=== PATIENT | female | born 1975 | race Caucasian/White ===

== ENCOUNTER 2016-09-30 22:33 | Emergency (ER) | payer BC | END 2016-10-01 00:10 | disposition home or self-care (01) | LOC: D.ER 22:33 | DX: J06.9 Acute upper respiratory infection, unspecified (principal); J20.9 Acute bronchitis, unspecified; M94.0 Chondrocostal junction syndrome [Tietze]; F98.8 Other specified behavioral and emotional disorders with onset usually occurring in childhood and adolescence ==

== ENCOUNTER 2017-06-15 09:38 | Emergency (ER) | payer BC ==
[2017-06-15 10:10] LABS: BASOPHILS 0.2 % (0-2); EOSINOPHILS 0.2 % (0-7); HEMATOCRIT 42.9 % (36.0-48.0); HEMOGLOBIN 14.3 g/dL (12-16); IMMATURE GRANULOCYTES 0.4 % (0-5); LYMPHOCYTES 18.1 % (15-50); MCH 30.2 pg (26.0-34.0); MCHC 33.3 g/dL (31.0-37.0); MCV 90.7 fL (80.0-100.0); MEAN PLATELET VOLUME 10.3 fL (7.4-10.4); MONOCYTES 9.7 % (2-11); NEUTROPHILS 71.4 % (40-80); RBC 4.73 10x6/uL (4.00-5.40); RDW 13.1 % (11.5-14.5); WBC 5.2 10x3/uL (4.8-10.8)
[2017-06-15 10:14] LABS: PLATELET COUNT 351 10x3/uL (130-400)
[2017-06-15 10:20] LABS: AMYLASE - SERUM 13 U/L (25-115); LIPASE 52 U/L (73-393)
[2017-06-15 10:22] LABS: HCG URINE NEGATIVE (NEGATIVE)
[2017-06-15 10:27] LABS: APPEARANCE HAZY (CLEAR); BILIRUBIN NEGATIVE (NEGATIVE); COLOR YELLOW (YELLOW); GLUCOSE NEGATIVE (NEGATIVE); KETONE NEGATIVE (NEGATIVE); NITRITE NEGATIVE (NEGATIVE); PROTEIN NEGATIVE (NEGATIVE); UROBILINOGEN NORMAL (NORMAL)
[2017-06-15 10:30] LABS: BACTERIA MODERATE /hpf (NONE SEEN); MUCUS >1+ /lpf (NONE SEEN); RED CELLS - URINE OCC /hpf (0-5); TALC POWDER CRYSTALS 0-5 /hpf (NONE SEEN)
[2017-06-15 10:42] LABS: HCG SERUM NEGATIVE (NEGATIVE)
[2017-06-15 11:13] LABS: ALBUMIN 3.2 g/dL (3.4-5.0); ANION GAP 11.6 mmol/L (8-16); BILIRUBIN - TOTAL 0.2 mg/dL (0.2-1.3); CALCIUM 7.9 mg/dL (8.5-10.1); CARBON DIOXIDE 25.1 mmol/L (21.0-32.0); CREATININE - SERUM 0.9 mg/dL (0.6-1.3); POTASSIUM - SERUM 3.7 mmol/L (3.5-5.1); PROTEIN - SERUM 6.5 g/dL (6.4-8.2)
== END 2017-06-15 13:04 | disposition home or self-care (01) ==
LOC: D.ER 09:38
PROVIDERS: Family Medicine; Nurse Practitioner Family
DX: R10.9 Unspecified abdominal pain (principal); F98.8 Other specified behavioral and emotional disorders with onset usually occurring in childhood and adolescence